=== PATIENT | male | born 1970 | race Caucasian/White ===

== ENCOUNTER 2024-01-27 07:19 | Day surgery (SDC) | payer OTHER, BC ==
[~2024-01-27] VITALS: Ht 177.8 cm; Wt 100.7 kg
[~2024-01-27 07:19] MED LIST: Ropivacaine 0.5% HCL/PF 5 MG/ML 30ML Vial ONE
[2024-01-27] MEDS ORDERED: NS 50 ML IV ONE (07:51)
[2024-01-27] MEDS ORDERED: CeFAZolin Sodium 2,000 MG VIAL ONE (07:51)
[2024-01-27] MEDS ORDERED: Lactated Ringer's 1,000 ML IV ONE ×3 (07:52→09:26)
[2024-01-27] MEDS ORDERED: propofoL 20 ML IV ONE (08:10)
[2024-01-27] MEDS ORDERED: Midazolam HCl 1MG / ML 2ML Vial ONE (08:11)
[2024-01-27] MEDS ORDERED: FentaNYL Citrate 50 MCG/ML 2 ML Injection ONE (08:11)
[2024-01-27] MEDS ORDERED: Dexamethasone Sod Phos 10 MG/ML 1ML VIAL ONE (08:12)
[2024-01-27] MEDS ORDERED: Ondansetron HCl 2 MG / ML 2ML Vial ONE (08:12)
[2024-01-27] MEDS ORDERED: Citric Acid/Sodium Citrate 30 ML BTL ONE (08:34)
--- NOTE | 2024-01-27 08:39 | NUR ---
[facility]27[facility]24 0839 [facility] NOT[facility] THAT PATIENT HAD CHEWING TOBACCO IN UNTIL 0700 THIS AM
[2024-01-27] MEDS ORDERED: Ketorolac Tromethamine 30mg Vial ONE (08:53)
--- NOTE | 2024-01-27 09:15 | NUR ---
01/27/24 0915 Janey Gurrola IRREGATION BAG SPIKED WITH 1 MG OF EPI. RUPIVICANIE 0.5% 30ML MIXED WITH 0.15ML OF EPI. VERIFFED WITH [facility]. TO MAKE RUPIVICAINE O.5% WITH EPI 1:200,000.
[2024-01-27] MEDS ORDERED: HYDROmorphone HCl/Pf 1MG SYR ONE (09:22)
[2024-01-27] MEDS ORDERED: EPINEPhrine HCl 1 MG/ML 1ML Amp XX ONE ×2 (09:29→09:30)
[2024-01-27] MEDS ORDERED: HYDROcodone 5-APAP 325 TAB ONE (10:18)
--- NOTE | 2024-01-27 11:34 | NUR ---
01/27/24 1134 Lance Ruiz PT REPORTED TOLERABLE 2/10 R KNEE PAIN UPON D/C. HE EXPRESSED READINESS TO RETURN HOME. PT WAS ADVISED TO MONITOR B/P AT HOME AND FOLLOW UP WITH PCP.
== END 2024-01-27 11:31 | disposition home or self-care (01) ==
LOC: ORSCSDS 07:19
PROVIDERS: Orthopaedic Surgery
PROC: 0SBC4ZZ Excision of Right Knee Joint, Percutaneous Endoscopic Approach (ICD-10-PCS; principal; 2024-01-27 08:45)
DX: S83.281A Other tear of lateral meniscus, current injury, right knee, initial encounter (principal); I10 Essential (primary) hypertension; F17.210 Nicotine dependence, cigarettes, uncomplicated; Z79.899 Other long term (current) drug therapy
CPT/HCPCS: A9270; J0171; J0690; J1100; J1170; J1885; J2250; J2405; J2704; J2795; J3010; J7120